=== PATIENT | female | born 1960 ===

== ENCOUNTER 2018-09-05 14:11 | Emergency (ER) | payer MEDICAID ==
[2018-09-05 14:52] VITALS: BP 159/89
--- NOTE | 2018-09-06 11:35 | Emergency Department Report ---
Blank Doc - Documentation Documentation: Patient left without being seen and without a medical screening exam
== END 2018-09-05 16:43 | disposition left against medical advice (07) ==
LOC: ED 14:11
DX: R10.9 Unspecified abdominal pain (principal); Z53.21 Procedure and treatment not carried out due to patient leaving prior to being seen by health care provider